=== PATIENT | female | born 1955 | race Caucasian/White ===

== ENCOUNTER 2024-04-25 04:48 | Emergency (ER) | payer OTHER ==
[~2024-04-25] VITALS: Ht 167.6 cm; Wt 80.0 kg
[2024-04-25 05:43] VITALS: PULSE 66; RESP 18; O2SAT 95
[2024-04-25 05:52] LABS: Basophils # (auto) 0.1 10 ^3/uL (0-0.2); Basophils % (auto) 0.9 % (0.0-2.0); Eosinophils # (auto) 0.4 10 ^3/uL (0-0.8); Eosinophils % (auto) 3.5 % (0.0-7.0); Hemoglobin 13.8 g/dL (12.2-16.2); Lymphocytes # (auto) 2.1 10 ^3/uL (0.4-5.4); Lymphocytes % (auto) 17.1 % (10.0-50.0); Mean Corpuscular Hemoglobin 30.7 pg (28.0-32.0); Mean Corpuscular Hgb Conc. 33.8 g/dL (32.0-36.0); Mean Corpuscular Volume 91.1 fL (80.0-100.0); Monocytes # (auto) 1.2 10 ^3/uL (0-1.3); Monocytes % (auto) 10.3 % (0.0-12.0); Neutrophils # (auto) 8.2 10 ^3/uL (1.6-8.6); Neutrophils % (auto) 68.2 % (37.0-80.0); Nucleated Red Blood Cells % 0.1 %; Red Cell Distribution Width 14.9 % (11.8-14.3)
[2024-04-25 05:55] LABS: INR 1.09 (0.9-1.15); Partial Thromboplastin Time 31.6 SEC (24.5-34.5); Prothrombin Time 11.5 sec (9.3-11.8)
[2024-04-25 06:07] LABS: Alanine Aminotransferase 42 U/L (7-40); Alkaline Phosphatase 160 U/L (46-116); Carbon Dioxide 21 mmol/L (20-30); Chloride 114 mmol/L (98-107); Glucose 116 mg/dL (74-106); Magnesium 1.7 mg/dL (1.6-2.6); Potassium 3.8 mmol/L (3.5-5.1)
[2024-04-25 06:08] LABS: Albumin 4.1 g/dL (3.2-4.8); Anion Gap 8 (5-15); Aspartate Aminotransferase 25 U/L (13-40); BUN/Creatinine Ratio 11.9 (10.0-20.0); Blood Urea Nitrogen 16 mg/dL (9-23); Sodium 143 mmol/L (136-145)
[2024-04-25 06:09] LABS: Bilirubin, Total 0.5 mg/dL (0.2-1.0); Total Protein 6.5 g/dL (5.7-8.2)
[2024-04-25 07:22] VITALS: PULSE 66; RESP 20; O2SAT 96
[2024-04-25] MEDS: NITROGLYCERIN 0.4 MG SL TAB SL ONE ×2 (10:38→13:17)
[2024-04-25] MEDS: ASPirin 325 MG TAB PO ONE (10:38)
[2024-04-25] MEDS ORDERED: DABI150C5 PO (10:42)
[2024-04-25] MEDS ORDERED: ATEN-60 PO (10:42)
[2024-04-25] MEDS ORDERED: LEV100T PO (10:42)
[2024-04-25] MEDS: MORPHINE SULFATE 4 MG/ML SYR/VIAL IV ONE (13:13)
[2024-04-25] MEDS: ONDANSETRON HCL 4 MG/2 ML VIAL IV ONE (13:18)
[2024-04-25 13:33] VITALS: BP 120/56; PULSE 60; RESP 12; TEMP 97.7; O2SAT 96
[2024-04-25 13:53] LABS: Urine Bacteria None Seen /hpf (None Seen)
[2024-04-25 14:08] LABS: Urine Blood Negative /uL (Negative); Urine Budding Yeast FEW /hpf (None Seen); Urine Clarity Turbid (Clear); Urine Color Yellow (Yellow); Urine Mucus FEW (None Seen); Urine Protein, UAD TRACE (Negative); Urine Specific Gravity 1.027 (1.001-1.035); Urine Urobilinogen Normal (Negative); Urine WBC 10 /hpf (0 - 5); Urine pH 5.5 (5.0-9.0)
== END 2024-04-25 13:55 | disposition short-term general hospital (02) ==
LOC: EDBD 04:48 → ER 04:48
DX: R07.9 Chest pain, unspecified (principal); R00.2 Palpitations; Z79.899 Other long term (current) drug therapy
CPT/HCPCS: 36415; 71045; 80053; 81001; 83735; 83880; 84484; 85025; 85610; 85730; 93005

== ENCOUNTER 2025-08-25 19:31 | Emergency (ER) | payer OTHER ==
[~2025-08-25] VITALS: Ht 170.2 cm; Wt 93.3 kg
[~2025-08-25 19:31] MED LIST: ATEN-60 PO; DABI150C5 PO; LEVO-849 PO
[2025-08-25 20:13] VITALS: BP 141/99; PULSE 78; RESP 16; TEMP 98.7; O2SAT 100
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
--- NOTE | 2025-08-25 21:42 | DVH ---
CLINICAL INDICATION: left knee pain TECHNIQUE: 3 radiographic views of the left knee were obtained. Comparison: None FINDINGS/IMPRESSION: Narrowing of the medial compartment of the left knee is noted. Spurring of the tibial spines is noted. No acute fractures or dislocations are seen. No radiopaque foreign bodies.
== END 2025-08-25 22:15 | disposition home or self-care (01) ==
LOC: EDBD 19:31 → ER 19:31
DX: S83.92XA Sprain of unspecified site of left knee, initial encounter (principal); S29.012A Strain of muscle and tendon of back wall of thorax, initial encounter; S46.812A Strain of other muscles, fascia and tendons at shoulder and upper arm level, left arm, initial encounter; I10 Essential (primary) hypertension; Z79.899 Other long term (current) drug therapy; V43.52XA Car driver injured in collision with other type car in traffic accident, initial encounter; Y93.89 Activity, other specified; Y92.410 Unspecified street and highway as the place of occurrence of the external cause; Y99.8 Other external cause status
CPT/HCPCS: 73562